=== PATIENT | male | born 1960 ===

== ENCOUNTER → 2021-01-22 | Emergency (ER) | payer OTHER ==
[~2021-01-22] VITALS: Ht 180.3 cm; Wt 90.7 kg
[~2021-01-22] MED LIST: ATORVASTATIN CA10 MG; CIPROFLOXA500 MG/5 M; COZAAR100 MG; PROSCAR5 MG; PYRIDIUM DS200 MG; TAMS0.4C
== END | disposition home or self-care (01) ==
LOC: ER 18:29
DX: R33.8 Other retention of urine (principal)